=== PATIENT | female | born 1970 | race Caucasian/White ===

== ENCOUNTER 2018-01-05 09:44 | Emergency (ER) | payer OTHER ==
[~2018-01-05] VITALS: Ht 157.5 cm; Wt 77.1 kg
[~2018-01-05 09:44] MED LIST: ALBU3IS INH; ALBU90OI INH; Bactrim Ds Tab1 EACH PO; CYCL10 PO; Cleocin HCl150 MG PO; DOXY100 PO; FLUC150A PO; HYDACE5 PO; IBUP600 PO; Norco 5-325 Ta1 EACH PO; OXYACE5T PO; PROM25 PO; TRAM50 PO; Ultram50 MG PO; Zofran Odt4 MG SL
[2018-01-05] MEDS ORDERED: Sudogest60 MG PO (11:23)
[2018-01-05] MEDS ORDERED: Zithromax250 MG PO (11:23)
[2018-01-05] MEDS ORDERED: BENZ100A PO (11:23)
== END 2018-01-05 11:30 | disposition home or self-care (01) ==
LOC: ER 09:44
DX: J44.1 Chronic obstructive pulmonary disease with (acute) exacerbation (principal); F17.200 Nicotine dependence, unspecified, uncomplicated; Z88.5 Allergy status to narcotic agent
CPT/HCPCS: 71046; 94640; 96372; 99283-25; J1885

== ENCOUNTER 2019-09-19 12:55 | Emergency (ER) | payer OTHER ==
[~2019-09-19] VITALS: Ht 157.5 cm; Wt 77.1 kg
[~2019-09-19 12:55] MED LIST changes: +BENZ100A PO; +Sudogest60 MG PO; +VICODIN 5-3001 EACH PO; +Vibramycin100 MG PO; +Zithromax250 MG PO
== END 2019-09-19 16:06 | disposition home or self-care (01) ==
LOC: ER 12:55
DX: S46.811A Strain of other muscles, fascia and tendons at shoulder and upper arm level, right arm, initial encounter (principal); F17.210 Nicotine dependence, cigarettes, uncomplicated; Z88.5 Allergy status to narcotic agent; X50.9XXA Other and unspecified overexertion or strenuous movements or postures, initial encounter
CPT/HCPCS: 71046; 99283-25

== ENCOUNTER 2019-09-25 07:34 | Emergency (ER) | payer OTHER ==
[~2019-09-25] VITALS: Ht 157.5 cm; Wt 81.7 kg
[2019-09-25 09:11] LABS: Alanine Aminotransfer (ALT/SGP 33 U/L (12-78); Albumin, Blood 3.6 g/dL (3.4-5.0); Albumin/Globulin Ratio 0.9 (0.8-1.8); Alk Phos 116 U/L (50-136); Anion Gap 4 mmol/L (6-16); Aspartate Aminotrans (AST/SGOT 36 U/L (12-37); Bilirubin, Total 0.6 mg/dL (0.1-1.0); Blood Urea Nitrogen 16 mg/dL (8-24); CO2, Blood 26 mmol/L (21-32); Calcium, Blood 8.9 mg/dL (8.5-10.1); Chloride, Blood 107 mmol/L (98-108); Glomerular Filtration Rate >60 (60-); Glucose, Blood 100 mg/dL (70-99); Potassium, Blood 5.6 mmol/L (3.5-5.5); Sodium, Blood 137 mmol/L (136-145); Total Protein, Blood 7.6 g/dL (6.4-8.2)
[2019-09-25] MEDS ORDERED: HYDR1TAB94 PO (10:14)
[2019-09-25] MEDS ORDERED: IBUP400 PO (10:14)
[2019-09-25] MEDS ORDERED: ALBU90OI INH (10:17)
== END 2019-09-25 10:47 | disposition home or self-care (01) ==
LOC: ER 07:34
PROVIDERS: Emergency Medicine
DX: R07.9 Chest pain, unspecified (principal); F17.210 Nicotine dependence, cigarettes, uncomplicated; Z88.5 Allergy status to narcotic agent
CPT/HCPCS: 36415; 71046; 80053; 83690; 93005; 93010; 96374; 99284-25; J1885

== ENCOUNTER 2020-03-21 06:07 | Emergency (ER) | payer OTHER ==
[~2020-03-21] VITALS: Ht 157.5 cm; Wt 79.4 kg
[~2020-03-21 06:07] MED LIST changes: +HYDR1TAB94 PO; +IBUP400 PO
[2020-03-21 07:14] LABS: BASOPHILS ABSOLUTE AUTO 0.08 K/mm3 (0.00-0.23); BASOPHILS PERCENT AUTO 1 % (0-2); EOSINOPHILS ABSOLUTE AUTO 0.11 K/mm3 (0.00-0.68); EOSINOPHILS PERCENT AUTO 1 % (0-6); Hematocrit 49.9 % (33.0-51.0); Hemoglobin 16.4 g/dL (11.5-16.0); IMMATURE GRAN ABSOLUTE AUTO 0.06 K/mm3 (0.00-0.10); IMMATURE GRAN PERCENT AUTO 1 % (0-1); LYMPHOCYTES ABSOLUTE AUTO 2.02 K/mm3 (0.84-5.20); LYMPHOCYTES PERCENT AUTO 18 % (21-46); MONOCYTES ABSOLUTE AUTO 0.93 K/mm3 (0.16-1.47); MONOCYTES PERCENT AUTO 8 % (4-13); Mean Corpuscular HGB 30.5 pg (26.0-34.0); Mean Corpuscular HGB Conc 32.9 g/dL (31.5-36.5); Mean Corpuscular Volume 93 fL (80-100); Mean Platelet Volume 9.6 fL (9.1-12.4); NEUTROPHILS ABSOLUTE AUTO 8.31 K/mm3 (1.96-9.15); NEUTROPHILS PERCENT AUTO 72 % (41-73); Platelet Count 272 K/mm3 (150-400); RDW Standard Deviation 44.4 fL (35.1-46.3); Red Blood Cell Count 5.37 M/mm3 (3.80-5.20); White Blood Cell Count 11.51 K/mm3 (4.00-11.30)
[2020-03-21 07:34] LABS: Alanine Aminotransfer (ALT/SGP 25 U/L (12-78); Albumin, Blood 3.6 g/dL (3.4-5.0); Albumin/Globulin Ratio 0.9 (0.8-1.8); Alk Phos 124 U/L (50-136); Anion Gap 5 mmol/L (6-16); Aspartate Aminotrans (AST/SGOT 17 U/L (12-37); Bilirubin, Total 0.7 mg/dL (0.1-1.0); Blood Urea Nitrogen 9 mg/dL (8-24); Bun/Creatinine Ratio 11.9 (12.0-20.0); CO2, Blood 27 mmol/L (21-32); Calcium, Blood 9.1 mg/dL (8.5-10.1); Chloride, Blood 106 mmol/L (98-108); Creatinine, Blood 0.76 mg/dL (0.40-1.00); Globulin, Blood 3.8 g/dL (2.2-4.0); Glomerular Filtration Rate >60 (60-); Glucose, Blood 110 mg/dL (70-99); Potassium, Blood 4.1 mmol/L (3.5-5.5); Sodium, Blood 138 mmol/L (136-145); Total Protein, Blood 7.4 g/dL (6.4-8.2)
[2020-03-21 08:31] LABS: Source, Urine Clean Catch
[2020-03-21 08:34] LABS: Bilirubin, Urine Neg (Neg); Blood, Urine 1+ (Neg); Glucose Qualitative, Urine Neg (Neg); Ketones, Urine Neg (Neg); Leukocyte Esterase, Urine 1+ (Neg); Nitrite, Urine Neg (Neg); Protein, Urine Neg (Neg); Urobilinogen, Urine NORM (Normal)
[2020-03-21 09:07] LABS: Appearance, Urine Clear (Clear); Color, Urine Yellow (P-Yellow)
[2020-03-21 09:09] LABS: Bacteria Mod /hpf; Mucus Heavy (0-Heavy); Red Blood Cells, Urine 0-2 /hpf (0-2); Squamous Epithelial Cells Few /hpf (Few)
[2020-03-21] MEDS ORDERED: Norco 7.5-3251 EACH PO (11:41)
[2020-03-21] MEDS ORDERED: ONDA4ODT MM (11:41)
== END 2020-03-21 12:15 | disposition home or self-care (01) ==
LOC: ER 06:07
PROVIDERS: Emergency Medicine
DX: N13.8 Other obstructive and reflux uropathy (principal)
CPT/HCPCS: 74019; 74177; 76830; 76856; 80053; 81001; 83690; 85025; 85651; 86304; 87086; 96374-59; 96375; 99284-25; J1885; J3010; Q9967

== ENCOUNTER 2020-04-21 10:34 | Day surgery (SDC) | payer OTHER ==
[~2020-04-21] VITALS: Ht 157.5 cm; Wt 93.3 kg
[~2020-04-21 10:34] MED LIST changes: +Norco 7.5-3251 EACH PO; +ONDA4ODT MM
--- NOTE | 2020-04-21 11:15 | NUR ---
Ambulatory in Day Surgery Patient confirms NPO status and agrees with scheduled surgery. Lungs clear T/O to Auscultation, DIMISHED. INTERMITTENT COUGHING FROM ALBUTEROL TX SUGAR COATING HAND. Surgical site prepped with 2% Chlorhexidine cloth wipe.
--- NOTE | 2020-04-21 12:46 | NUR ---
PT AMBULATES TO RESTROOM c STEADY GAIT. GIVEN DUO DONALD PER MD REQUEST.
--- NOTE | 2020-04-21 15:08 | NUR ---
04/21/20 1508 Refugio Mackay LEFT THIGH BOVIE PAD SITE NOTED TO BE PINK WITH SOME BRUISING TO SITE AFTER PROCEDURE.SKIN NOTED TO BE INTACT, WILL CONTINUE TO MONITOR.
--- NOTE | 2020-04-21 15:47 | NUR ---
Dressing to procedure site clean, dry, intact with no visible drainage, swelling, erythema or bruising noted. PT STATES SHE WAKES UP FROM ANESTHESIA TEARFUL. PROVIDED COMFORT, FOOD, FLUID AND A PAIN PILL.
--- NOTE | 2020-04-21 16:20 | NUR ---
Patient up to Ambulate independently. Gait steady. Dressing to procedure site clean, dry, intact with no visible drainage, swelling, erythema or bruising noted.GAVE KAYLI PAD. Discharge instructions reviewed with patient. Patient verbalizes understanding. Copy given to patient to take home. Patient States Post-Procedure ride home has been arranged. Discharged via wheelchair to private car for ride home. ALL BELONINGS RETURNED TO PATIENT. PT RECEIVED TWO PAIN PILLS.
== END 2020-04-21 22:37 | disposition home or self-care (01) ==
LOC: ORSCMMR 10:34
PROVIDERS: Obstetrics & Gynecology
PROC: 0UT74ZZ Resection of Bilateral Fallopian Tubes, Percutaneous Endoscopic Approach (ICD-10-PCS; principal; 2020-04-21 12:00)
PROC: 0UT04ZZ Resection of Right Ovary, Percutaneous Endoscopic Approach (ICD-10-PCS; principal; 2020-04-21 12:00)
DX: D39.11 Neoplasm of uncertain behavior of right ovary (principal); R10.2 Pelvic and perineal pain; D27.0 Benign neoplasm of right ovary; E66.01 Morbid (severe) obesity due to excess calories; Z68.37 Body mass index [BMI] 37.0-37.9, adult; F17.210 Nicotine dependence, cigarettes, uncomplicated; Z79.899 Other long term (current) drug therapy
CPT/HCPCS: 88108; 88305; 88331; A9270; J1100; J1885; J2250; J2405; J2704; J2710; J3010; J7120

== ENCOUNTER → 2020-12-13 | Outpatient (CLI) | payer OTHER ==
[2020-12-16 20:18] LABS: CORONAVIRUS (COVID19) CSH-NRL Positive (Negative)
== END | disposition home or self-care (01) ==
LOC: LAB SHORT 18:10 → LAB 18:10
PROVIDERS: Physician Assistant Surgical
DX: U07.1 COVID-19 (principal)
CPT/HCPCS: U0003